=== PATIENT | female | born 1945 | race Caucasian/White ===

== ENCOUNTER 2019-08-31 21:19 | Emergency (ER) | payer OTHER, SELFPAY ==
[2019-08-31 21:20] VITALS: BP 152/82; PULSE 65; RESP 16; TEMP 36.3; O2SAT 100; BMI 29.3
--- NOTE | 2019-08-31 21:36 | RAD_ITS ---
STUDY: X-RAY - ACUTE ABDOMINAL SERIES REASON FOR EXAM: Female, 73 years old. Constipation. Pain for 2 weeks. TECHNIQUE: Single view of the chest. Supine, and erect view(s) of the abdomen were obtained. COMPARISON: None. FINDINGS: The lungs are clear and expanded. There is cardiomegaly with left atrial enlargement. Normal mediastinum and sammy. Normal visualized pulmonary arteries. There is a tortuous atherosclerotic aorta. There is a non-specific bowel gas pattern. Gas is seen in the colon as well as nondilated small bowel loops. Large amount of rectal feces. There is no free air. The soft tissue structures of the abdomen and pelvis are unremarkable. There are diffuse degenerative changes of the visualized lumbar spine. RAD/Acute Abdomen Inc Chest IMPRESSION: 1. Nonspecific bowel gas pattern without obvious obstruction. 2. Increased rectal feces suggesting constipation. 3. Mild uncoiling of the aorta arch. There is no acute cardiopulmonary disease. 4. Borderline cardiomegaly Electronically Signed: Daren Lehman DO at 22:10 EDT Tel [phone], Service support ,
--- NOTE | 2019-08-31 21:56 | ED.VIS.GEN ---
History of Present Illness Chief Complaint: Constipation Informant: Patient Onset: Days Context: Gradual Onset Timing: Continuous Current Severity: Moderate Maximum Severity: Moderate Narrative: The patient presents to the emergency department constipation. The patient had a mechanical fall about 8 days ago. She landed on her buttocks. She was seen at urgent care and had negative x-rays. She states that since then, has been having some increasing constipation. States over the past 3 days, she is had a difficult time moving her bowels. She began to have some abdominal cramping. She denies any nausea vomiting. She has taken MiraLAX with little improvement. Prior similar symptoms: No Recent Illness/Hospitalization: No Past Medical History - Allergies and Home Meds Allergies/Adverse Reactions: Allergies aloe vera Allergy (Verified 08/31/19 21:20) Rash Primary Care Physician: Fito Elam DO [Primary Care Provider] - Prior records reviewed: Yes Past Medical History: None Surgical History: hysterectomy, tonsillectomy Smoking Status: Never smoker Review of Systems General: Denies: Chills, Fever, Sweats Eyes: Denies: Visual changes - bilaterally, Diplopia ENT: Denies: Rhinorrhea, Sore throat Cardiovascular: Denies: Chest pain, Palpitations Respiratory: Denies: Dyspnea, Cough, Dyspnea on exertion Gastrointestinal: Reports: Constipation. Denies: Abdominal pain, Nausea, Vomiting, Diarrhea, Melena, Hematochezia Genitourinary: Denies: Dysuria, Hematuria, Frequency Musculoskeletal: Denies: Back pain, Extremity Pain Skin: Denies: Rash, Wounds Neurological: Denies: Headache, Weakness, Numbness Physical Exam Vital Signs/Narrative: Vital Signs Temp Pulse Resp BP Pulse Ox 08/31/19 21:20 97.4 F L 65 16 152/82 H 100 Inital Vital Signs reviewed: Yes General: Well nourished, Well developed, No Acute Distress Head: Normocephalic, Atraumatic Eyes: Perrl, EOMI ENT: Moist mucous membranes, No rhinorrhea Neck: Supple, Nontender Cardiovascular: Regular rate, Regular rhythm, No murmurs Respiratory: No distress, CTA bilaterally, Chest nontender Abdomen: Soft, Nontender, Nondistended, Normal bowel sounds Back: Nontender, Normal Inspection Extremities: Nontender, No edema Skin: Normal color, No rash Neurological: Alert, Oriented x3, Cranial nerves II-XII grossly intact, Normal Strength, Normal Sensation Psychological: Normal affect, Normal Mood Diagnostic/Tx/Re-eval - Medical Decision Making The patient presents for constipation. Her abdomen is soft and nontender. I did obtain plain films. There is no evidence of obstruction. There is no evidence of perforation. Patient was given a soapsuds enema. Impression 1. Constipation ED Disposition - Plan for ED Patient: Instructions: CONSTIPATION (Adult) Referrals: Fito Elam DO [Primary Care Provider] -
[2019-08-31 23:42] VITALS: BP 148/81; PULSE 78; RESP 17; O2SAT 96
== END 2019-08-31 23:43 | disposition home or self-care (01) ==
LOC: ED 22:46
PROVIDERS: Emergency Provider Emergency Medicine; Family Provider Family Medicine; PCP Family Medicine
DX: K59.00 Constipation, unspecified (principal); W19.XXXA Unspecified fall, initial encounter; Y93.9 Activity, unspecified; Y92.9 Unspecified place or not applicable
CPT/HCPCS: 74022; 99284

== ENCOUNTER → 2019-12-24 08:04 | Outpatient (CLI) | payer SELFPAY ==
--- NOTE | 2019-12-24 08:08 | CT_ITS ---
STUDY: CT ABDOMEN AND PELVIS WITH CONTRAST REASON FOR EXAM: Female, 74 years old. PT STATED PERSISTENT ABDOM PAIN AND BLOATING RADIATION DOSAGE (If Supplied By Facility): CTDIvol = ( 11.93 ) mGy, DLP = ( 659.28 ) mGycm TECHNIQUE: Transaxial images were obtained from the dome of the diaphragm to the symphysis pubis with oral contrast. IV 100mL Isovue-[id number] was administered. Sagittal and coronal images were reconstructed. Individualized dose optimization techniques were used for this CT. COMPARISON: None. FINDINGS: Increased linear markings and bronchiectasis in the anterior aspect of the right lower lobe suggestive of scarring. Minimal increased markings at the left lung base. The visualized portions of the heart are within normal limits. Normal liver. Normal gallbladder and extrahepatic biliary system. Normal spleen. Normal pancreas. Normal bilateral adrenal glands. Normal right kidney. Normal left kidney. Normal visualized stomach. Normal small intestine. Normal colon. There is non-visualization of the appendix. There is diffuse atherosclerotic calcification of the abdominal aorta and its major visceral branches, without a demonstrated aneurysm. Normal inferior vena cava. Normal retroperitoneum. Normal urinary bladder. There is absence of the uterus consistent with a prior hysterectomy. Normal abdominal wall. There are diffuse degenerative changes of the visualized lumbar spine. There is almost complete collapse of the T12 vertebrae. Dextroscoliosis. CT/Abdomen/Pelvis WITH Contrast IMPRESSION: No acute abnormality is seen. Electronically Signed: Krish Meadows, at 13:31 EST , Service support ,
[2019-12-24 08:20] LABS: CREATININE FINGERSTICK 0.6 mg/dL (0.55-1.02); EGFR FINGERSTICK > 60.0000 mL/min (>60)
== END ==
PROVIDERS: Family Provider Family Medicine; PCP Family Medicine; Referring Provider Family Medicine; Visit Provider Family Medicine
DX: R10.9 Unspecified abdominal pain (principal); R14.0 Abdominal distension (gaseous)
CPT/HCPCS: 74177; Q9967